=== PATIENT | male | born 1950 | race Caucasian/White ===

== ENCOUNTER 2018-05-26 15:43 | Emergency (ER) | payer MEDICARE ==
[2018-05-26 16:23] VITALS: BP 148/70
--- NOTE | 2018-05-26 17:25 | UC ---
Upper Extremity HPI - HPI Summary HPI Summary: 68 yo WM presents with left wrist pain after cranking a piece of machinery, thinks he strained it, but no injury, no numbness or tingling. - History of Current Complaint Chief Complaint: UCUpperExtremity Stated Complaint: LEFT WRIST INJURY Time Seen by Provider: 05/26/18 16:29 Hx Obtained From: Patient Onset/Duration: Sudden Onset Severity Initially: Moderate Severity Currently: Moderate Pain Intensity: 3 Character: Dull, Aching - Allergies/Home Medications Allergies/Adverse Reactions: Allergies Allergy/AdvReac Type Severity Reaction Status Date / Time No Known Allergies Allergy Verified 05/26/18 16:09 Home Medications: Home Medications Albuterol/Ipratropium RESP(NF) [Combivent Respimat (NF)] 1 - 2 puff DAILY PRN [History Confirmed 05/26/18] Apixaban* [Eliquis*] 1 tab BID 05/26/18 [History Confirmed 05/26/18] Candesartan Cilexetil 1 tab DAILY 05/26/18 [History Confirmed 05/26/18] Clobetasol 0.05% OINT* 1 applic DAILY 05/26/18 [History Confirmed 05/26/18] Clopidogrel TAB* [Plavix TAB*] 1 tab DAILY 05/26/18 [History Confirmed 05/26/18] Efinaconazole [Jublia] 1 applic DAILY 05/26/18 [History Confirmed 05/26/18] Fenofibrate Nanocrystallized [Tricor] 1 tab DAILY 05/26/18 [History Confirmed ] Furosemide TAB* [Lasix TAB*] 1 tab DAILY 05/26/18 [History Confirmed 05/26/18] Insulin Glargine (Nf) [Toujeo Solostar Pen (NF)] 70 unit QPM 05/26/18 [History Confirmed 05/26/18] Ketoconazole 1 applic DAILY 05/26/18 [History Confirmed 05/26/18] Nateglinide 1 tab TID 05/26/18 [History Confirmed 05/26/18] Roflumilast [Daliresp] 1 tab DAILY 05/26/18 [History Confirmed 05/26/18] metFORMIN* [Glucophage 1000 MG TAB *] 1,000 mg PO BID 05/26/18 [History Confirmed 05/26/18] PMH/Surg Hx/FS Hx/Imm Hx - Surgical History Surgical History: Yes Surgery Procedure, Year, and Place: CARDIAC [facility] - Social History Alcohol Use: Rare Substance Use Type: None Smoking Status (MU): Former Smoker When Did the Patient Quit Smoking/Using Tobacco: 2009 Review of Systems All Other Systems Reviewed And Are Negative: Yes Constitutional: Positive: Negative Skin: Positive: Negative Eyes: Positive: Negative ENT: Positive: Negative Respiratory: Positive: Negative Cardiovascular: Positive: Negative Gastrointestinal: Positive: Negative Genitourinary: Positive: Negative Motor: Positive: Negative Neurovascular: Positive: Negative Musculoskeletal: Positive: Decreased ROM - left wrist Neurological: Positive: Negative Psychological: Positive: Negative Physical Exam - Summary Physical Exam Summary: Eye Exam: Normal ENT Exam: Normal ENT: Positive: Normal ENT inspection, Pharynx normal Dental Exam: Normal Neck exam: Normal Neck: Positive: 1 Respiratory: WNL Cardiovascular: Positive: RRR Abdominal Exam: Normal Abdomen Description: Positive: Nontender, Soft Musculoskeletal Exam: moderate TTP over the radial styloid, flexion limited to 20 degrees, no numbness or tingling Neurological Exam: Normal Psychological Exam: Normal Skin Exam: Normal Triage Information Reviewed: Yes Vital Signs: Initial Vital Signs Temp 36.7 C 05/26/18 16:15 Pulse 73 05/26/18 16:15 Resp 16 05/26/18 16:15 BP 148/70 05/26/18 16:15 Pulse Ox 95 05/26/18 16:15 Upper Extremity Course/Dx - Course Course Of Treatment: possible avulsion near distal radius vs calcification- may be old, will splint and follow up with orth - Differential Dx/Diagnosis Provider Diagnosis: Left wrist fracture Discharge - Sign-Out/Discharge Documenting (check all that apply): Patient Departure All imaging exams completed and their final reports reviewed: Yes - Discharge Plan Condition: Stable Disposition: HOME Patient Education Materials: Suspected Fracture (ED) Referrals: Seema Akbar [Primary Care Provider] - - Billing Disposition and Condition Condition: STABLE Disposition: Home
== END 2018-05-26 18:28 | disposition home or self-care (01) ==
LOC: UCCORT 15:43
DX: S52.502A Unspecified fracture of the lower end of left radius, initial encounter for closed fracture (principal); X50.0XXA Overexertion from strenuous movement or load, initial encounter; Y93.89 Activity, other specified; Y92.9 Unspecified place or not applicable; Z87.891 Personal history of nicotine dependence
CPT/HCPCS: 99203; G0463